=== PATIENT | male | born 1950 | race Caucasian/White ===

== ENCOUNTER → 2017-01-28 | Outpatient (CLI) | payer MEDICARE, OTHER | END | disposition home or self-care (01) | LOC: LAB.O 09:11 | PROVIDERS: ATTEND Orthopaedic Surgery | DX: Z01.818 Encounter for other preprocedural examination (principal) ==

== ENCOUNTER 2017-02-24 05:46 | Day surgery (SDC) | payer MEDICARE, OTHER ==
--- NOTE | 2017-02-23 08:28 | HP ---
CHIEF COMPLAINT: Left hand pain and numbness. HISTORY OF PRESENT ILLNESS: Mr. Steiner is a 66-year-old male with a history of bilateral carpal tunnel syndrome. He has undergone right carpal tunnel release about 3 years ago. He has successful results with that. As such, he has requested left carpal tunnel release just given the severity of the symptoms, the ongoing nature of them, and failure of conservative measures. After discussing the risks, benefits and alternatives to operative therapy, the patient has given informed consent. PAST SURGICAL HISTORY: 1. Right carpal tunnel release. MEDICATIONS: None currently. ALLERGIES: NO KNOWN DRUG ALLERGIES. CODE STATUS: DNR. IMMUNIZATIONS: Up to date. SOCIAL HISTORY: The patient does not drink, smoke or use any illicit drugs. FAMILY HISTORY: None pertinent to today's complaint. REVIEW OF SYSTEMS: Negative except as indicated in the History of Present Illness. PHYSICAL EXAMINATION: VITAL SIGNS: Blood pressure 111/46. Pulse 64. Height 5'11". Weight 179. MENTAL STATUS: The patient is awake, alert, and is able to give a good history and participate in the physical. The patient is oriented to person, place and time. SKIN: Normal tone and turgor. MUSCULOSKELETAL: He is tender to deep palpation of the wrist. He has some minor thenar atrophy on the affected side. He has pain at the base of the thumb , but all digits are warm and well perfused. 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 He has positive Phalen's, but negative Tinel's. He has positive carpal compression test. He has no deformity or malalignment of the upper extremity. ASSESSMENT: 1. Carpal tunnel release. PLAN: He has had an EMG which confirms the presence of carpal tunnel syndrome and he has developed some minor thenar atrophy from previous and I think in conjunction with his EMG as well as his failure of conservative measures, he is a reasonable candidate for carpal tunnel release. We have discussed the risks, benefits, and alternatives to that and the patient has given informed consent. #[id number] [facility]
[~2017-02-24 05:46] MED LIST: LACTATED RINGERS 1,000 ML ONE; SODIUM CHL 0.9% 100ML MINI-BAG 100 ML IVPB ONE; ceFAZolin SODIUM 1 GM VIAL ONE
[2017-02-24] MEDS ORDERED: BUPIVACAINE 0.25% INJ 30 ML VIAL INJ ONE (06:50)
[2017-02-24] MEDS ORDERED: LIDOCAINE 1% 50 ML VIAL INJ ONE (06:50)
[2017-02-24] MEDS ORDERED: VANCOMYCIN HCL INJ 1,000 MG VIAL IVPB ONE (06:51)
[2017-02-24] MEDS ORDERED: ceFAZolin SODIUM 1 GM VIAL ONE (06:51)
[2017-02-24 08:36] VITALS: BP 128/70; TEMP 97.4; O2SAT 100
--- NOTE | 2017-02-24 08:39 | OP ---
DATE OF PROCEDURE: 02/24/17 PREOPERATIVE DIAGNOSIS: 1. Left carpal tunnel syndrome. POSTOPERATIVE DIAGNOSIS: 1. Left carpal tunnel syndrome. PROCEDURE: 1. Carpal tunnel release. SURGEON: Sudarshan Watson MD. VP [facility]ATION: Oscar Cole CST, SA-C. ANESTHESIA: Local with sedation. COMPLICATIONS: None. FINDINGS: Narrowing of the median nerve across the carpal tunnel. INDICATION: The patient has a history of pain in the wrist with associated numbness. He has carpal tunnel syndrome and has had contralateral carpal tunnel release. He has failed conservative measures and after discussing the risks, benefits and alternatives to operative therapy on the affected side, the patient has given informed consent for carpal tunnel release. PROCEDURE: The patient was brought to the Operating Room and placed in the supine position. Sedation was administered and local anesthetic was injected into the operative area under sterile conditions. After the injection of anesthetic, the arm was sterilely prepped and draped. A longitudinal incision was made directly overlying the transverse carpal ligament and blunt dissection was carried down to the ligament. The transverse carpal ligament was sharply transected along its length and a [place] elevator was used to ensure complete release of the ligament. Once release had been confirmed, the wound was thoroughly irrigated and the wound was closed with Nylon suture. A sterile dressing was placed and the patient was taken to the Day Surgery Unit. POSTOPERATIVE INSTRUCTIONS: The patient has been encouraged to do range of motion of the digits and will followup with us in two days. #[id number] [facility]
[2017-02-24] MEDS ORDERED: PROPOFOL 200 MG/20 ML VIAL IV ONE (12:00)
[2017-02-24] MEDS ORDERED: LIDOCAINE 1% 10 ML VIAL INJ ONE (12:00)
== END 2017-02-24 08:25 | disposition home or self-care (01) ==
LOC: AMB 05:46
PROVIDERS: ATTEND Orthopaedic Surgery
DX: G56.02 Carpal tunnel syndrome, left upper limb (principal); E13.9 Other specified diabetes mellitus without complications
CPT/HCPCS: 01810; 64721; 82948; J0690; J3370; J3490; J7050; J7120

== ENCOUNTER → 2017-02-26 | Outpatient (CLI) | payer MEDICARE, OTHER | LOC: GMAB 10:16 | PROVIDERS: ATTEND Family Medicine | DX: E03.9 Hypothyroidism, unspecified (principal); Z12.5 Encounter for screening for malignant neoplasm of prostate | CPT/HCPCS: 84439; 84443; 84481; G0103 ==

== ENCOUNTER → 2017-04-09 | Outpatient (CLI) | payer MEDICARE, OTHER | END | disposition home or self-care (01) | LOC: GMAB 10:46 | PROVIDERS: ATTEND Family Medicine | DX: D69.6 Thrombocytopenia, unspecified (principal) ==

== ENCOUNTER → 2018-04-01 | Outpatient (CLI) | payer MEDICARE, OTHER | LOC: GMAB 10:41 | PROVIDERS: ATTEND Family Medicine | DX: E03.9 Hypothyroidism, unspecified (principal); E11.9 Type 2 diabetes mellitus without complications; I10 Essential (primary) hypertension ==

== ENCOUNTER → 2018-05-27 | Outpatient (CLI) | payer MEDICARE, OTHER | LOC: GMAE 11:12 | PROVIDERS: ATTEND Family Medicine | DX: E08.610 Diabetes mellitus due to underlying condition with diabetic neuropathic arthropathy (principal); G25.81 Restless legs syndrome ==

== ENCOUNTER → 2018-09-13 | Outpatient (CLI) | payer MEDICARE, OTHER | LOC: LAB.O 09:11 | PROVIDERS: ATTEND Family Medicine | DX: E78.2 Mixed hyperlipidemia (principal) ==

== ENCOUNTER → 2018-10-05 | Outpatient (CLI) | payer MEDICARE, OTHER | LOC: GMAE 16:39 | PROVIDERS: ATTEND Family Medicine | DX: R41.9 Unspecified symptoms and signs involving cognitive functions and awareness (principal) ==

== ENCOUNTER → 2018-10-06 | Outpatient (CLI) | payer MEDICARE, OTHER ==
--- NOTE | 2018-10-06 14:48 | MRI ---
EXAM DESCRIPTION: Brain w/o Contrast: MRI. CLINICAL HISTORY: AUDITORY HALLUCINATIONS COMPARISON: MRI scan of the right without contrast 03/07/2014. TECHNIQUE: Multiplanar, high-field MRI unit, multiple diffusion sequences, multiple conventional sequences without contrast. FINDINGS: Minimally confluent hyperintense FLAIR and T2-weighted signal in the periventricular white matter abutting the occipital ventricles and in the frontal horns. Minimal changes mckeon-white subcortical matter junctions. No hemorrhage, no edema, no diffusion restriction. Stable since the prior study Also focal hyperintense FLAIR signal in the anterior right external capsule and claustrum abutting the basal ganglia medially, and the sylvian fissure laterally. No hemorrhage, no edema, no diffusion restriction. Stable since the prior study. No hemorrhage, no cerebral edema, no diffusion restriction in the bilateral basal ganglia. Normal signal in the brainstem and cerebellar hemispheres. No hemorrhage, no cerebral edema, no diffusion restriction. Concordance of the diffusion and non-diffusion sequences with no diffusion restriction. Cortical sulci, ventricles, and other CSF spaces, and the subdural spaces are normally configured for patients age. No effacement or displacement. No midline shift. No extra-axial hemorrhage. Normal flow signal void in the major vessels of the [place], and the venous sinuses. IACs are symmetric bilaterally. Normal signal in the bilateral mastoid air cells. No mass effect in the bilateral cerebellopontine angles. Pituitary gland occupies most of the sella. Base of the cerebellar tonsils is above the foramen magnum. Minimal mucoperiosteal thickening in the bilateral. The bony calvarium is intact. IMPRESSION: 1. Stable periventricular white matter abnormalities abutting the occipital regions of the bilateral lateral ventricles and in the frontal horns of the lateral ventricles. Also stable focal lesion in the anterior right claustrum, between the right external capsule and the right sylvian fissure. 2. No acute intra-axial extra-axial hemorrhage, mass effect, cerebral edema or diffusion restriction. Minimal chronic paranasal sinusitis. Electronically signed by: Oscar Baez MD 10/06/2018 2:46 PM [employer]
== END ==
LOC: MRI 10:00
PROVIDERS: ATTEND Family Medicine
DX: R41.9 Unspecified symptoms and signs involving cognitive functions and awareness (principal); J32.9 Chronic sinusitis, unspecified

== ENCOUNTER → 2018-10-11 | Outpatient (CLI) | payer MEDICARE, OTHER | LOC: GMAE 11:29 | PROVIDERS: ATTEND Family Medicine | DX: D64.9 Anemia, unspecified (principal) ==

== ENCOUNTER → 2019-08-29 | Outpatient (CLI) | payer MEDICARE, OTHER | LOC: GMAE 16:49 | PROVIDERS: ATTEND Family Medicine | DX: D64.9 Anemia, unspecified (principal); E53.8 Deficiency of other specified B group vitamins ==

== ENCOUNTER → 2019-10-26 | Outpatient (CLI) | payer MEDICARE, OTHER | LOC: GMAE 10:54 | PROVIDERS: ATTEND Family Medicine | DX: E03.9 Hypothyroidism, unspecified (principal); E11.9 Type 2 diabetes mellitus without complications ==

== ENCOUNTER 2020-02-03 11:56 | Emergency (ER) | payer MEDICARE, OTHER ==
[2020-02-03] MEDS ORDERED: ONDANSETRON INJ 4 MG/2 ML VIAL IV ONE (12:21)
[2020-02-03] MEDS ORDERED: ACETAMINOPHEN 500 MG TAB PO ONE (12:21)
--- NOTE | 2020-02-03 12:24 | ED.PDOC ---
History of Present Illness - General Stated Complaint: N/V,abd pain and distended Time Seen by Provider: 02/03/20 12:19 - History of Present Illness Initial Comments: 69 yo M PMH DM presents to ED at bedside sent by PMD Dr. Rutherford c/o abdominal pain distention and nausea vomiting with decreased appetite today. Denies fever chills diarrhea chest pain sob diaphoresis. Admits decreased appetite disturbed rest denies current drinking or smoking no other c/o today. Allergies/Adverse Reactions: Allergies NO KNOWN ALLERGY Allergy (Unverified 09/19/14 07:55) Home Medications: Ambulatory Orders Aspirin [Baby Aspirin] 81 mg PO DAILY 09/15/14 Atorvastatin Calcium [Lipitor] 20 mg PO DAILY 09/15/14 Citalopram Hydrobromide [Celexa] 40 mg PO DAILY 09/15/14 Metformin HCl [Metformin HCl ER] 1,000 mg PO BID 09/15/14 Metoprolol Tartrate [Lopressor] 50 mg PO BID 09/15/14 Temazepam [Restoril] 15 mg PO BEDTIME 09/15/14 Canagliflozin [Invokana] 100 mg PO DAILY 02/23/17 Furosemide [Lasix] 40 mg PO DAILY 02/23/17 Multiple Vitamins W/ Minerals [Multivitamin Adults] 1 tab PO DAILY 02/23/17 Potassium Chloride [Potassium Chloride ER] 10 meq PO DAILY 02/23/17 Pregabalin [Lyrica] 50 mg PO BID 02/23/17 amLODIPine BESYLATE [Norvasc] 10 mg PO DAILY 02/23/17 Review of Systems - Review of Systems Constitutional: States: see HPI EENTM: States: see HPI Respiratory: States: see HPI Cardiology: States: see HPI Gastrointestinal/Abdominal: States: see HPI Genitourinary: States: see HPI Musculoskeletal: States: see HPI Skin: States: see HPI Neurological: States: see HPI Endocrine: States: see HPI All other Systems: Reviewed and Negative Past Medical History (General) - Patient Medical History Hx Congestive Heart Failure: No Hx Diabetes: Yes - FSBS 90 Hx MRSA: No Family Medical History - Family History Mother Living Status: Hx Family Cancer: Yes Physical Exam - Physical Exam General Appearance: No apparent distress Eye Exam: bilateral normal Ears, Nose, Throat: normal ENT inspection Neck: non-tender, full range of motion Respiratory: normal breath sounds Cardiovascular/Chest: regular rate, rhythm Gastrointestinal/Abdominal: soft, distended, tenderness Rectal Exam: deferred Back Exam: normal inspection Extremity: normal range of motion, non-tender Neurologic: no motor/sensory deficits Skin Exam: normal color Progress - Progress Progress: 02/03/20 12:24 A/P-Abdominal Pain Nausea Vomiting Abnormal EKG-iv bolus tylenol zofran cbc cmp lipase lactate trop ct abdomen pelvis ekg cxr reassess 02/03/20 12:57 EKG-non specific TW changes No STEMI TWI Lead I, aVL no previous for comparison NSR 81bpm abnormal EKG 02/03/20 12:59 Add Lactic Acidosis to diagnosis Laboratory Tests 02/03/20 02/03/20 02/03/20 12:20 12:20 12:20 WBC 7.9 RBC 3.07 L Hgb 9.8 L Hct 28.6 L MCV 93.0 MCH 32.0 H MCHC 34.4 RDW 14.2 Plt Count 177 MPV 7.7 Absolute Neuts (auto) 6.40 Absolute Lymphs (auto) 0.90 L Absolute Monos (auto) 0.60 Absolute Eos (auto) 0.10 Absolute Basos (auto) 0.00 Neutrophils % 80.3 H Lymphocytes % 11.0 L Monocytes % 7.3 Eosinophils % 1.0 Basophils % 0.4 PT 9.8 INR < 1.00 PTT (SP) 22.3 Sodium 137 Potassium 3.7 Chloride 99 L Carbon Dioxide 26 Anion Gap 15.7 BUN 42 H Creatinine 2.29 H BUN/Creatinine Ratio 18.3 Random Glucose 137 H Serum Osmolality 286.4 Lactic Acid Calcium 8.5 Total Bilirubin 0.6 AST 23 ALT 18 Alkaline Phosphatase 91 Serum Total Protein 6.7 Albumin 4.0 Globulin 2.7 Albumin/Globulin Ratio 1.5 Lipase 02/03/20 02/03/20 12:20 12:20 WBC RBC Hgb Hct MCV MCH MCHC RDW Plt Count MPV Absolute Neuts (auto) Absolute Lymphs (auto) Absolute Monos (auto) Absolute Eos (auto) Absolute Basos (auto) Neutrophils % Lymphocytes % Monocytes % Eosinophils % Basophils % PT INR PTT (SP) Sodium Potassium Chloride Carbon Dioxide Anion Gap BUN Creatinine BUN/Creatinine Ratio Random Glucose Serum Osmolality Lactic Acid 3.0 H* Calcium Total Bilirubin AST ALT Alkaline Phosphatase Serum Total Protein Albumin Globulin Albumin/Globulin Ratio Lipase 35 03/27/20 13:10 Dx-add acute on chronic renal failure, lactic acidosis, pneumonia 02/03/20 13:21 EXAM DESCRIPTION: Chest,1 View CLINICAL HISTORY: 69 years Male, vomiting COMPARISON: None. FINDINGS: One view/radiograph Heart size and pulmonary vessels are within normal limits. There is no pneumothorax or pleural effusion. Patchy right basilar airspace disease. Linear left basilar atelectasis. The soft tissues are unremarkable. No acute osseous findings. IMPRESSION: Patchy right basilar airspace disease; atelectasis or pneumonia. Electronically signed by: Kevin Light MD 02/03/2020 12:52 PM CDT 02/03/20 14:06 EXAM DESCRIPTION: Abdoment/Pelvis w/o Contrast CLINICAL HISTORY: pain vomiting COMPARISON: None. TECHNIQUE: Noncontrast transaxial CT images of the abdomen and pelvis are obtained. This exam was performed according to our departmental dose-optimization program, which includes automated exposure control, adjustment of the mA and/or kV according to patient size and/or use of iterative reconstruction technique . FINDINGS: Visualized lung bases show small right pleural effusion. The heart is enlarged. Severe coronary artery calcifications. Patient breathing motion artifact limits detailed evaluation. Given the limitations of a noncontrast exam the liver, spleen, pancreas, adrenal glands, and contracted gallbladder are unremarkable. Moderate vascular calcifications. Large area of increased attenuation abutting the lateral aspect of the kidney from superior to inferior more prominent inferiorly measures at least 7 cm AP by 9.4 cm transverse by 8.3 cm cranial caudal. Moderate fat stranding in the pararenal soft tissue is seen with small amount of fluid in the paracolic gutter extending posterior to the urinary bladder. Stranding extends into the right pelvis. Multiple fluid attenuation and increased attenuation cysts are seen on the cortex of both kidneys. The largest increased attenuation lesion in the midpole left kidney measures 2.1 cm. Largest exophytic increased attenuation lesion on the lower pole of the right kidney measures 3.1 cm with Hounsfield units of 16-21. No nephrolithiasis. No ureteral calcification or obstruction. Urinary bladder is poorly distended and not well evaluated. Prostate is mildly enlarged. The appendix is mildly retrocecal and normal. No free intraperitoneal air. No small bowel obstruction. Moderate scattered diverticuli of the colon mostly in the descending to sigmoid region are seen without associated inflammatory changes or fluid collections. No pathologically enlarged abdominal or retroperitoneal lymphadenopathy. Bony hypertrophy and partial fusion of the sacroiliac joints is seen bilaterally. [id number] degenerative changes of the spine are seen. Moderate fat-containing bilateral inguinal hernias. Small amount of fluid in the left inguinal hernia. I MPRESSION: Moderate right perinephric hematoma and hemorrhage extending into the pararenal space and mildly into the right paracolic gutter from diaphragm to pelvis. Bilateral simple and hyperdense renal cortical cysts are seen suggesting hemorrhagic or proteinaceous cyst. Solid renal mass cannot be excluded. Consider follow-up imaging with ultrasound or postcontrast CT imaging with the patient can tolerate this. Trace right pleural effusion. Colon diverticulosis without CT evidence of diverticulitis. Findings on this exam were called to Dr. Derek Lehman at 02/03/2020 1:40 PM CDT by Carlos Ulola MD. Electronically signed by: Ignacio Ulloa MD 02/03/2020 1:41 PM CDT 02/03/20 14:10 Pt has perinephric hematoma and hemorrhage will transfer [employer] Dr. Juarez of interventional cardiology on board and Dr. Domingo of the ED accepts Departure - Departure Clinical Impression: Perinephric hematoma, Hemorrhage, Lactic acidosis Pneumonia Qualifiers: Pneumonia type: due to unspecified organism Laterality: right Lung location: unspecified part of lung Qualified Code(s): J18.9 - Pneumonia, unspecified organism Acute renal failure Qualifiers: Acute renal failure type: unspecified Qualified Code(s): N17.9 - Acute kidney failure, unspecified Time of Disposition: 14:13 Disposition: Transfer to Hospital Condition: Fair Referrals: CHOLO RUTHERFORD MD [Primary Care Provider] - 1-2 Weeks Home Medications: Ambulatory Orders Aspirin [Baby Aspirin] 81 mg PO DAILY 09/15/14 Atorvastatin Calcium [Lipitor] 20 mg PO DAILY 09/15/14 Citalopram Hydrobromide [Celexa] 40 mg PO DAILY 09/15/14 Metformin HCl [Metformin HCl ER] 1,000 mg PO BID 09/15/14 Metoprolol Tartrate [Lopressor] 50 mg PO BID 09/15/14 Temazepam [Restoril] 15 mg PO BEDTIME 09/15/14 Canagliflozin [Invokana] 100 mg PO DAILY 02/23/17 Furosemide [Lasix] 40 mg PO DAILY 02/23/17 Multiple Vitamins W/ Minerals [Multivitamin Adults] 1 tab PO DAILY 02/23/17 Potassium Chloride [Potassium Chloride ER] 10 meq PO DAILY 02/23/17 Pregabalin [Lyrica] 50 mg PO BID 02/23/17 amLODIPine BESYLATE [Norvasc] 10 mg PO DAILY 02/23/17 Transfer to Outside Facility - Transfer Information Decision to Transfer Date: 02/03/20 Decision to Transfer Time: 14:13 Reason for Transfer: specialized care not available Accepting Facility: [facility] - Dr. Domingo ED accepts, I spoke with Dr. Chong of interventional cardiology who will see patient on arrival
--- NOTE | 2020-02-03 12:53 | RAD ---
EXAM DESCRIPTION: Chest,1 View CLINICAL HISTORY: 69 years Male, vomiting COMPARISON: None. FINDINGS: One view/radiograph Heart size and pulmonary vessels are within normal limits. There is no pneumothorax or pleural effusion. Patchy right basilar airspace disease. Linear left basilar atelectasis. The soft tissues are unremarkable. No acute osseous findings. IMPRESSION: Patchy right basilar airspace disease; atelectasis or pneumonia. Electronically signed by: Kevin Light MD 02/03/2020 12:52 PM CDT
[2020-02-03] MEDS ORDERED: PIPERACILLIN/TAZOBACTAM 3.375 GM in SODIUM CHLORIDE 0.9% 100ML 100 ML IVPB ONE (12:58)
[2020-02-03] MEDS ORDERED: VANCOMYCIN HCL INJ 1,000 MG in SODIUM CHLORIDE 0.9% 250ML 250 ML IVPB ONE (12:58)
[2020-02-03] MEDS ORDERED: SODIUM CHLORIDE 0.9% 1000ML 1,000 ML IVS ONE (12:58)
[2020-02-03] MEDS ORDERED: SODIUM CHLORIDE 0.9% 100ML 100 ML IVPB ONE (13:01)
[2020-02-03] MEDS ORDERED: PIPERACILLIN/TAZOBACTAM 3.375 GM VIAL IVPB ONE (13:01)
--- NOTE | 2020-02-03 13:42 | CT ---
EXAM DESCRIPTION: Abdoment/Pelvis w/o Contrast CLINICAL HISTORY: pain vomiting COMPARISON: None. TECHNIQUE: Noncontrast transaxial CT images of the abdomen and pelvis are obtained. This exam was performed according to our departmental dose-optimization program, which includes automated exposure control, adjustment of the mA and/or kV according to patient size and/or use of iterative reconstruction technique . FINDINGS: Visualized lung bases show small right pleural effusion. The heart is enlarged. Severe coronary artery calcifications. Patient breathing motion artifact limits detailed evaluation. Given the limitations of a noncontrast exam the liver, spleen, pancreas, adrenal glands, and contracted gallbladder are unremarkable. Moderate vascular calcifications. Large area of increased attenuation abutting the lateral aspect of the kidney from superior to inferior more prominent inferiorly measures at least 7 cm AP by 9.4 cm transverse by 8.3 cm cranial caudal. Moderate fat stranding in the pararenal soft tissue is seen with small amount of fluid in the paracolic gutter extending posterior to the urinary bladder. Stranding extends into the right pelvis. Multiple fluid attenuation and increased attenuation cysts are seen on the cortex of both kidneys. The largest increased attenuation lesion in the midpole left kidney measures 2.1 cm. Largest exophytic increased attenuation lesion on the lower pole of the right kidney measures 3.1 cm with Hounsfield units of 16-21. No nephrolithiasis. No ureteral calcification or obstruction. Urinary bladder is poorly distended and not well evaluated. Prostate is mildly enlarged. The appendix is mildly retrocecal and normal. No free intraperitoneal air. No small bowel obstruction. Moderate scattered diverticuli of the colon mostly in the descending to sigmoid region are seen without associated inflammatory changes or fluid collections. No pathologically enlarged abdominal or retroperitoneal lymphadenopathy. Bony hypertrophy and partial fusion of the sacroiliac joints is seen bilaterally. [id number] degenerative changes of the spine are seen. Moderate fat-containing bilateral inguinal hernias. Small amount of fluid in the left inguinal hernia. IMPRESSION: Moderate right perinephric hematoma and hemorrhage extending into the pararenal space and mildly into the right paracolic gutter from diaphragm to pelvis. Bilateral simple and hyperdense renal cortical cysts are seen suggesting hemorrhagic or proteinaceous cyst. Solid renal mass cannot be excluded. Consider follow-up imaging with ultrasound or postcontrast CT imaging with the patient can tolerate this. Trace right pleural effusion. Colon diverticulosis without CT evidence of diverticulitis. Findings on this exam were called to Dr. Derek Lehman at 02/03/2020 1:40 PM CDT by Carlos Ulloa MD. Electronically signed by: Ignacio Ulloa MD 02/03/2020 1:41 PM CDT
[2020-02-03] MEDS ORDERED: VANCOMYCIN HCL INJ 1,000 MG VIAL IVPB ONE (14:12)
[2020-02-03] MEDS ORDERED: SODIUM CHLORIDE 0.9% 250ML 250 ML ONE (14:12)
[2020-02-03 15:14] VITALS: BP 146/71; TEMP 98.4; O2SAT 94
== END 2020-02-03 15:00 | disposition short-term general hospital (02) ==
LOC: ER 11:56
DX: J18.9 Pneumonia, unspecified organism (principal); N17.9 Acute kidney failure, unspecified; E87.2 Acidosis; M79.81 Nontraumatic hematoma of soft tissue; N28.89 Other specified disorders of kidney and ureter; R11.2 Nausea with vomiting, unspecified; E11.9 Type 2 diabetes mellitus without complications; Z79.82 Long term (current) use of aspirin; Z79.84 Long term (current) use of oral hypoglycemic drugs; Z79.899 Other long term (current) drug therapy
CPT/HCPCS: 36415; 71045; 74176; 80053; 83605; 83690; 84484; 85025; 85610; 85651; 85730; 87040; 93005; J2405; J2543; J3370; J7030; J7050

== ENCOUNTER → 2020-05-07 | Outpatient (CLI) | payer MEDICARE, OTHER | LOC: GMAE 10:41 | PROVIDERS: ATTEND Family Medicine | DX: E53.8 Deficiency of other specified B group vitamins (principal); Z12.5 Encounter for screening for malignant neoplasm of prostate; E03.9 Hypothyroidism, unspecified; E11.9 Type 2 diabetes mellitus without complications; I10 Essential (primary) hypertension; E78.5 Hyperlipidemia, unspecified | CPT/HCPCS: 82607; 84439; 84443; 84481; G0103 ==

== ENCOUNTER → 2020-10-22 | Outpatient (CLI) | payer MEDICARE, OTHER | LOC: GMAE 14:29 | PROVIDERS: ATTEND Family Medicine | DX: D50.9 Iron deficiency anemia, unspecified (principal); E53.8 Deficiency of other specified B group vitamins ==